=== PATIENT | male | born 1940 | race Native Hawaiian/Other Pacific Islander ===

== ENCOUNTER 2018-10-02 13:05 | Emergency (ER) | payer OTHER ==
[~2018-10-02] VITALS: Ht 172.7 cm; Wt 116.6 kg
[2018-10-02 13:05] VITALS: TEMP 97.7
[2018-10-02 13:57] LABS: PLATELET COUNT 200 K/uL (142-355)
[2018-10-02 14:08] LABS: POTASSIUM 3.9 mmol/L (3.6-5.2)
[2018-10-02 14:40] VITALS: BP 157/64
[2018-10-02] MEDS ORDERED: ASPIRIN 81 LOW81 MG PO (15:26)
[2018-10-02] MEDS ORDERED: ALLERGY RELF10 M1 PO (15:26)
[2018-10-02] MEDS ORDERED: CELEXA40 MG PO (15:27)
[2018-10-02] MEDS ORDERED: DOCU100C10 PO (15:28)
[2018-10-02] MEDS ORDERED: CLOP75TA2 PO (15:28)
[2018-10-02] MEDS ORDERED: ACID CONTROL MA20 MG PO (15:30)
[2018-10-02] MEDS ORDERED: TRICOR48 MG PO (15:31)
[2018-10-02] MEDS ORDERED: FINGERSTIX (15:32)
[2018-10-02] MEDS ORDERED: FLONASE AL50 MCG/ACT NAS (15:34)
[2018-10-02] MEDS ORDERED: FURO20TA67 PO (15:34)
[2018-10-02] MEDS ORDERED: LYRICA300 MG PO (15:35)
[2018-10-02] MEDS ORDERED: MELATONIN10 M1 PO (15:36)
[2018-10-02] MEDS ORDERED: NYST100016 TOP (15:37)
[2018-10-02] MEDS ORDERED: KLOR-CON SPRIN10 MEQ PO (15:39)
[2018-10-02] MEDS ORDERED: RISP1TAB PO (15:40)
[2018-10-02] MEDS ORDERED: TAMS0.4C PO (15:42)
== END 2018-10-02 14:40 | disposition other institution (70) ==
LOC: ED 13:05
PROVIDERS: Emergency Medicine
DX: F28 Other psychotic disorder not due to a substance or known physiological condition (principal); I45.19 Other right bundle-branch block; Z04.6 Encounter for general psychiatric examination, requested by authority
CPT/HCPCS: 36415; 80053; 85027; 93005; 99285